=== PATIENT | female | born 1970 | race American Indian/Alaskan Native ===

== ENCOUNTER 2018-11-08 16:02 | Emergency (ER) | payer SELFPAY ==
[2018-11-08] MEDS ORDERED: DELTASONE PO ONE (19:03)
[2018-11-08] MEDS ORDERED: TORADOL IM ONE (19:03)
--- NOTE | 2018-11-08 19:04 | Emergency Department Report ---
ED Fall HPI - General Chief Complaint: Fall Stated Complaint: RIBS/L KNEE PAIN Time Seen by Provider: 11/08/18 18:26 Source: patient Mode of arrival: Ambulatory - History of Present Illness Initial Comments: This is a 48-year-old female with no prominent medical history who presents complaining of left-sided rib pain and left knee pain status post fall ground level fall while at work yesterday. Patient states she accidentally fell while at work and fell forward and hit her knee and her side. Patient states he just dishes been having pain. Patient admits pain to the left chest wall lateral area. As well as left knee pain. She denies shortness of breath, chest pain, dizziness, headache, blurry vision, loss of consciousness after fall. Patient was able to get up and ambulate after the incident. 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 Place Fall Occurred: work Loss of Consciousness: none Prolonged Down Time?: no Symptoms Prior to Fall: none Location: chest, other (knee) Location - Extremities: Right: Knee Severity scale (0 -10): 5 Quality: aching Context: tripped/slipped - Related Data Previous Rx's Medication Instructions Recorded Last Taken Type Acetaminophen/Codeine [Tylenol 1 tab PO Q6H PRN #14 tab 01/14/15 Unknown Rx /Codeine # 3 tab] Cyclobenzaprine [Flexeril 10 MG 10 mg PO QHS #20 tablet 11/08/18 Unknown Rx TAB] Ibuprofen [Motrin 600 MG tab] 600 mg PO Q8H PRN #30 tablet 11/08/18 Unknown Rx Allergies Allergy/AdvReac Type Severity Reaction Status Date / Time No Known Allergies Allergy Verified 11/08/18 16:06 ED Review of Systems ROS: Stated complaint: RIBS/L KNEE PAIN Other details as noted in HPI Comment: All other systems reviewed and negative ED Past Medical Hx - Past Medical History Previous Medical History?: No - Surgical History Past Surgical History?: No - Social History Smoking Status: Never Smoker Substance Use Type: None - Medications Home Medications: Home Medications Medication Instructions Recorded Confirmed Last Taken Type Acetaminophen/Codeine [Tylenol 1 tab PO Q6H PRN #14 tab 01/14/15 Unknown Rx /Codeine # 3 tab] Cyclobenzaprine [Flexeril 10 MG 10 mg PO QHS #20 tablet 11/08/18 Unknown Rx TAB] Ibuprofen [Motrin 600 MG tab] 600 mg PO Q8H PRN #30 tablet 11/08/18 Unknown Rx ED Physical Exam - General Limitations: No Limitations General appearance: alert, in no apparent distress - Head Head exam: Present: atraumatic, normocephalic - Eye Eye exam: Present: normal appearance - ENT ENT exam: Present: mucous membranes moist - Neck Neck exam: Present: normal inspection, full ROM. Absent: tenderness - Respiratory Respiratory exam: Present: normal lung sounds bilaterally, chest wall tenderness. Absent: respiratory distress, wheezes, rales - Cardiovascular Cardiovascular Exam: Present: regular rate, normal rhythm, other (left lateral chest wall ecchymosis). Absent: systolic murmur, diastolic murmur, rubs, gallop - GI/Abdominal GI/Abdominal exam: Present: soft, normal bowel sounds. Absent: distended, tenderness - Extremities Exam Extremities exam: Present: normal inspection, full ROM. Absent: tenderness - Back Exam Back exam: Present: normal inspection, full ROM. Absent: tenderness, CVA tenderness (R), CVA tenderness (L) - Neurological Exam Neurological exam: Present: alert, oriented X3, CN II-XII intact, normal gait - Psychiatric Psychiatric exam: Present: normal affect, normal mood - Skin Skin exam: Present: warm, dry, intact, normal color. Absent: rash ED Course Vital Signs 11/08/18 11/08/18 11/08/18 16:30 19:13 20:19 Temperature 98.1 F 98.3 F Pulse Rate 80 67 Respiratory 18 18 16 Rate Blood Pressure 126/80 128/64 O2 Sat by Pulse 100 99 Oximetry ED Medical Decision Making - Radiology Data Radiology results: report reviewed, image reviewed Fluoro Time In Minutes: PROCEDURE: XR RIBS UNI W PA CHEST 3+V LT TECHNIQUE: PROCEDURE: XR RIBS UNI W PA CHEST 3+V LT TECHNIQUE: Left rib radiographs, 3 views of the ribs, including PA chest. HISTORY: pain/fall COMPARISONS: None . FINDINGS: Heart: Normal . Mediastinum/Vessels: Normal . Lungs: Normal . Pleural space: Normal . Pneumothorax: None . Bony thorax/ribs: No acute or displaced rib fractures. IMPRESSION: No acute abnormality of the chest and LEFT ribs. - Medical Decision Making 48-year-old female presents with contusion/arthralgia/myalgia status post fall while at work ground level. X-rays of the rib shows no fracture of the [place] or any longer abnormality. Knee x-rays shows no abnormalities as well. Discussed this findings with the patient. Discussed with patient to get proper rest, heat compressions 3 times a day. Critical care attestation.: If time is entered above; I have spent that time in minutes in the direct care of this critically ill patient, excluding procedure time. ED Disposition Clinical Impression: Fall, Knee pain, Contusion of left chest wall Disposition: DC- TO HOME OR SELFCARE Is pt being admited?: No Does the pt Need Aspirin: No Condition: Stable Instructions: Contusion in Adults (ED), Knee Pain (ED), Knee Exercises (GEN) Additional Instructions: Make sure to follow up with the primary care physician as discussed. Take all your medications as you've been prescribed. If you have any worsening symptoms or develop new symptoms please return to ED immediately. Prescriptions: Cyclobenzaprine [Flexeril 10 MG TAB] 10 mg PO QHS #20 tablet Ibuprofen [Motrin 600 MG tab] 600 mg PO Q8H PRN #30 tablet PRN Reason: Pain Referrals: NANCIE ALEJO MD [Primary Care Provider] - 3-5 Days Forms: Work/School Release Form(ED) Time of Disposition: 21:40
[2018-11-08 20:23] VITALS: BP 128/64
--- NOTE | 2018-11-08 21:07 | XRay Report ---
PROCEDURE: XR KNEE 3V LT TECHNIQUE: LEFT knee radiographs, 4 or more views, including AP, lateral, and oblique views. HISTORY: pain COMPARISONS: None . FINDINGS: Bony alignment is within normal limits. There is narrowing of the medial tibiofemoral compartment. Mi ld to moderate degree osteophyte formation is noted involving tibiofemoral and patellofemoral compart ments. There is moderate degree of joint effusion. An acute fracture is not identified. IMPRESSION: Moderate degree of osteoarthritis with moderate degree of joint effusion . This document is electronically signed by Matthew Gasca MD., November 08 2018 09:04:50 PM ET
--- NOTE | 2018-11-08 21:07 | XRay Report ---
PROCEDURE: XR RIBS UNI W PA CHEST 3+V LT TECHNIQUE: PROCEDURE: XR RIBS UNI W PA CHEST 3+V LT TECHNIQUE: Left rib radiographs, 3 views of the ribs, including PA chest. HISTORY: pain/fall COMPARISONS: None . FINDINGS: Heart: Normal . Mediastinum/Vessels: Normal . Lungs: Normal . Pleural space: Normal . Pneumothorax: None . Bony thorax/ribs: No acute or displaced rib fractures. IMPRESSION: No acute abnormality of the chest and LEFT ribs. HISTORY: pain/fall COMPARISONS: FINDINGS: IMPRESSION: . This document is electronically signed by Matthew Gasca MD., November 08 2018 09:05:47 PM ET
== END 2018-11-08 21:45 | disposition home or self-care (01) ==
LOC: ED 16:02
DX: S20.212A Contusion of left front wall of thorax, initial encounter (principal); M25.562 Pain in left knee; W17.89XA Other fall from one level to another, initial encounter; Y93.89 Activity, other specified; Y92.69 Other specified industrial and construction area as the place of occurrence of the external cause; Y99.8 Other external cause status
CPT/HCPCS: 71101; 73562; 96372; 99283; J1885; J7512

== ENCOUNTER 2021-09-30 11:05 | Outpatient (CLI) | payer OTHER ==
--- NOTE | 2021-09-30 12:56 | XRay Report ---
BILATERAL KNEES 2 VIEWS EACH 1136 INDICATION: BILATERAL KNEE PAIN COMPARISON: Right knee 05/25/2012 FINDINGS: No fractures or dislocations are seen. On the right there is significant progression of tri compartment degenerative change which is now prominent. Prominent medial joint space narrowing is see n with genu varus noted. No definite joint effusion is seen. On the left there is also tricompartment al degenerative change which is moderately prominent, less so than on the right. Moderate medial join t space narrowing is noted with mild genu varus. In both knees there is mild subluxation of the femur on the tibia which appears chronic. On the right this was mildly present previously. There may be a small left joint effusion. Signer Name: Marty Patel MD Signed: 09/30/2021 12:52 PM Workstation Name: [id number]
== END 2021-09-30 11:06 | disposition home or self-care (01) ==
LOC: XRAY 11:05
PROVIDERS: ATTEND Internal Medicine
DX: M17.0 Bilateral primary osteoarthritis of knee (principal)